=== PATIENT | female | born 1940 | race Caucasian/White ===

== ENCOUNTER 2017-06-30 14:20 | Day surgery (SDC) | payer OTHER ==
[~2017-06-30] VITALS: Ht 167.6 cm; Wt 88.3 kg
[~2017-06-30 14:20] MED LIST: AFRIN,GENASAL D15 ML BOTH NARES; AMLODIPINE BESYL5 MG PO; ASPIRIN325 MG PO; BACLOFEN10 MG PO; CRESTOR10 MG PO; CRESTOR5 MG PO; DOXYCYCLINE HY100 MG PO; GLIMEPIRIDE4 MG PO; GLUCOPHAGE1000 MG PO; HYDROCODON-ACE1 EAC8 PO; HYDROCODON-ACE1 EAC9 PO; KOMBIGLYZE XR1 EAC2 PO; LANTUS 10100 UNITS/ SC; LITE COAT ASPI325 M1 PO; LORTAB 5-325 M1 EACH PO; LOSARTAN-HCTZ1 EAC2 PO; NICODERM CQ1 EAC2 TD; PERCOCET 7.51 TABLET PO; PRAMIPEXOLE0.125 MG PO; PREDNISONE50 MG PO; PROTONIX40 MG PO; ULTRAM ER200 MG PO; VENTOLIN HFA18 GM IH
[2017-06-30] MEDS ORDERED: METOPROLOL SUCC25 MG PO (15:06)
[2017-06-30 19:36] VITALS: BP 166/74
[2017-06-30 21:20] VITALS: BP 167/73
[2017-06-30 22:10] VITALS: BP 153/72
[2017-06-30 23:11] VITALS: BP 121/58
[2017-07-01 03:28] VITALS: BP 142/70
[2017-07-01 05:35] LABS: BASOPHIL COUNT 0.1 K/uL (0-0.1); EOSINOPHIL (%) 3.4 % (0-5); EOSINOPHIL COUNT 0.2 K/uL (0-0.3); HEMATOCRIT 34.5 % (36.0-46.0); HEMOGLOBIN 11.4 G/DL (11.9-15.5); IMMATURE GRANULOCYTE (%) 0.1 % (0.0-0.7); LYMPHOCYTE COUNT 2.2 K/uL (1.0-2.8); MCH 30.9 PG (29.0-34.0); MCV 93.5 FL (83-99); MONOCYTE (%) 7.5 % (3-12); MONOCYTE COUNT 0.5 K/uL (0-0.8); NEUTROPHIL COUNT 3.8 K/uL (1.8-6.4); PLATELET COUNT 151 K/uL (156-360); RBC DIS.WIDTH-CV 13.2 % (11.8-14.6); RBC DIS.WIDTH-SD 45.1 % (39-53); RED BLOOD COUNT 3.69 M/uL (3.80-5.20); WHITE BLOOD COUNT 6.8 K/uL (4.1-10.2)
[2017-07-01 05:56] LABS: CHLORIDE 106 MEQ/L (99-109); CREATININE 0.9 MG/DL (0.6-1.3); GFR ESTIMATE (CALCULATED) > 59 mL/min/; GLUCOSE 84 mg/dL (70-99); POTASSIUM 4.2 MEQ/L (3.7-5.4); SODIUM 140 MEQ/L (136-147); UREA NITROGEN (BUN) 20 mg/dL (9-23)
[2017-07-01 07:56] VITALS: BP 123/61
[2017-07-01 14:02] VITALS: BP 133/78
[2017-07-01] MEDS ORDERED: CLOPIDOGREL75 MG PO (16:46)
== END 2017-07-01 18:17 | disposition home or self-care (01) ==
LOC: CATH 14:20 → ENRESERV 16:09 → CANRESERV 16:09 → ENRESERV 16:10 → 4EAST 19:40 → ENPENDDIS 07-01 → 4EAST 07-01 18:17
PROVIDERS: Internal Medicine Cardiovascular Disease
DX: I25.10 Atherosclerotic heart disease of native coronary artery without angina pectoris (principal); I25.84 Coronary atherosclerosis due to calcified coronary lesion; I11.9 Hypertensive heart disease without heart failure; E11.51 Type 2 diabetes mellitus with diabetic peripheral angiopathy without gangrene; I65.23 Occlusion and stenosis of bilateral carotid arteries; I49.3 Ventricular premature depolarization; G47.30 Sleep apnea, unspecified; E78.5 Hyperlipidemia, unspecified; Z87.891 Personal history of nicotine dependence; Z79.82 Long term (current) use of aspirin; Z79.4 Long term (current) use of insulin
CPT/HCPCS: 80048; 82948; 85025; 85347; 93005; 99202; C1725; C1769; C1874; C1887; G0378; J0583; J1644; J2250; J7030

== ENCOUNTER 2017-07-28 02:26 | Observation (INO) | payer OTHER ==
[~2017-07-28] VITALS: Ht 167.6 cm; Wt 85.1 kg
[~2017-07-28 02:26] MED LIST changes: +CLOPIDOGREL75 MG PO; +METOPROLOL SUCC25 MG PO
[2017-07-28 02:49] LABS: HEMATOCRIT 38.9 % (36.0-46.0); HEMOGLOBIN 13.6 G/DL (11.9-15.5); MCH 31.6 PG (29.0-34.0); MCV 90.3 FL (83-99); PLATELET COUNT 166 K/uL (156-360); RBC DIS.WIDTH-CV 12.9 % (11.8-14.6); RBC DIS.WIDTH-SD 42.4 % (39-53); RED BLOOD COUNT 4.31 M/uL (3.80-5.20); WHITE BLOOD COUNT 9.1 K/uL (4.1-10.2)
[2017-07-28 02:56] LABS: ALBUMIN 4.2 g/dL (3.2-4.8)
[2017-07-28 02:57] LABS: CHLORIDE 99 mEq/L (99-109); SODIUM 136 mEq/L (136-147)
[2017-07-28 02:59] LABS: GLUCOSE 261 mg/dL (70-99); TOTAL PROTEIN 7.1 g/dL (6.4-8.3)
[2017-07-28 03:01] LABS: TOTAL BILIRUBIN 0.5 mg/dL (0.0-1.0)
[2017-07-28 03:02] LABS: ALKALINE PHOSPHATASE 75 IU/L (3-129)
[2017-07-28 03:03] LABS: CREATININE 1.2 mg/dL (0.6-1.3); GFR ESTIMATE (CALCULATED) 47 mL/min/
[2017-07-28 03:04] LABS: AST (GOT) 11 IU/L (2-34); UREA NITROGEN (BUN) 24 mg/dL (9-23)
[2017-07-28 03:06] LABS: ALT (GPT) 16 IU/L (3-49); LIPASE 8 U/L (1.0-51.0)
[2017-07-28 03:09] LABS: TROP-I INTERPRETATION NEGATIVE; TROPONIN-I 0.03 ng/mL (0.0-0.30)
[2017-07-28 05:18] VITALS: BP 150/74
[2017-07-28 07:24] VITALS: BP 170/80
[2017-07-28 10:05] LABS: TROP-I INTERPRETATION NEGATIVE; TROPONIN-I 0.03 ng/mL (0.0-0.30)
[2017-07-28 11:26] VITALS: BP 143/70
[2017-07-28] MEDS ORDERED: VALACYCLOVIR1000 MG PO (13:20)
[2017-07-28] MEDS ORDERED: HUMALOG MI100 UNIT/5 SC (13:21)
[2017-07-28] MEDS ORDERED: OXYCODONE-APAP1 EAC6 PO (13:21)
[2017-07-28] MEDS ORDERED: ROSUVASTATIN CAL5 MG PO (13:22)
[2017-07-28] MEDS ORDERED: PLAVIX75 MG PO (13:23)
[2017-07-28] MEDS ORDERED: GABAPENTIN100 MG PO (14:28)
[2017-07-28 15:06] LABS: TROP-I INTERPRETATION NEGATIVE; TROPONIN-I 0.03 ng/mL (0.0-0.30)
== END 2017-07-28 17:09 | disposition home or self-care (01) ==
LOC: EME → EDBD 02:26 → EDOF 04:25 → ENRESERV 04:38 → 5WEST 05:11
PROVIDERS: Emergency Medicine; Hospitalist
DX: I25.118 Atherosclerotic heart disease of native coronary artery with other forms of angina pectoris (principal); B02.29 Other postherpetic nervous system involvement; D68.9 Coagulation defect, unspecified; R94.31 Abnormal electrocardiogram [ECG] [EKG]; I11.9 Hypertensive heart disease without heart failure; E11.9 Type 2 diabetes mellitus without complications; Z95.5 Presence of coronary angioplasty implant and graft; R09.89 Other specified symptoms and signs involving the circulatory and respiratory systems; R01.1 Cardiac murmur, unspecified; E78.5 Hyperlipidemia, unspecified; J44.9 Chronic obstructive pulmonary disease, unspecified; G89.29 Other chronic pain; M54.5 Low back pain; Z87.11 Personal history of peptic ulcer disease; Z90.710 Acquired absence of both cervix and uterus; F17.210 Nicotine dependence, cigarettes, uncomplicated; Z82.49 Family history of ischemic heart disease and other diseases of the circulatory system; Z82.3 Family history of stroke; Z83.3 Family history of diabetes mellitus; Z88.8 Allergy status to other drugs, medicaments and biological substances; E66.9 Obesity, unspecified; Z68.30 Body mass index [BMI] 30.0-30.9, adult; G47.30 Sleep apnea, unspecified; Z79.02 Long term (current) use of antithrombotics/antiplatelets; Z79.4 Long term (current) use of insulin; Z79.82 Long term (current) use of aspirin
CPT/HCPCS: 71045; 71275; 80053; 82948; 83690; 83880; 84484; 85027; 85379; 93005; 94640; 99202; 99281; 99284; G0378; J1650; J1815; J7512